=== PATIENT | female | born 1955 | race Caucasian/White ===

== ENCOUNTER → 2016-11-20 | Outpatient (CLI) | payer OTHER | END | disposition home or self-care (01) | LOC: LAB 09:02 | PROVIDERS: ATTEND Obstetrics & Gynecology Gynecology | DX: R53.83 Other fatigue (principal) | CPT/HCPCS: 36415; 86900 ==

== ENCOUNTER 2019-03-04 16:18 | Emergency (ER) | payer OTHER ==
[~2019-03-04] VITALS: Ht 170.2 cm; Wt 70.7 kg
[2019-03-04] MEDS ORDERED: PROP10TA51 PO (17:43)
[2019-03-04] MEDS ORDERED: VALTREX (17:43)
[2019-03-04] MEDS ORDERED: ASPI-515 PO (17:43)
[2019-03-04] MEDS ORDERED: LIPITOR (17:43)
[2019-03-04] MEDS ORDERED: SYNTHROID (17:43)
--- NOTE | 2019-03-04 17:45 | NUR ---
PT CAME IN CO OF "A CHEST SENSATION. AND I HAVENT BEEN FEELING MYSELF FOR THE PAST WEEK". 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 DIXON IS BEDSIDE.
[2019-03-04] MEDS ORDERED: ASPIRIN 81 MG TABLET CHEW ONE (17:52)
[2019-03-04] MEDS ORDERED: ASPIRIN 81 MG TABLET CHEW PO ONE (18:00)
[2019-03-04 18:10] LABS: BASOPHILS # (AUTO) 0.11 x10^3/uL (0-0.1); BASOPHILS % (AUTO) 2 % (0-1); EOSINOPHILS # (AUTO) 0.25 x10^3/uL (0-0.4); EOSINOPHILS % (AUTO) 3 % (1-7); LYMPHOCYTES # (AUTO) 1.83 x10^3/uL (1-3.4); LYMPHOCYTES % (AUTO) 25 % (22-44); MD NO; MEAN CORPUSCULAR HEMOGLOBIN 32.7 pg (27.0-34.8); MEAN CORPUSCULAR HGB CONC 33.7 g/dL (32.4-35.8); MEAN CORPUSCULAR VOLUME 96.8 fL (80-100); MEAN PLATELET VOLUME 7.7 fL (7.4-10.4); MONOCYTES # (AUTO) 0.72 x10^3/uL (0.2-0.8); MONOCYTES % (AUTO) 10 % (2-9); NEUTROPHILS # (AUTO) 4.32 x10^3/uL (1.8-6.8); NEUTROPHILS % (AUTO) 60 % (42-75); PLATELET COUNT 268 x10^3/uL (130-400); RED BLOOD COUNT 4.41 x10^6/uL (3.82-5.3); RED CELL DISTRIBUTION WIDTH 13.6 % (9.6-15.2)
--- NOTE | 2019-03-04 18:24 | NUR ---
TASK RN: WITH REPEAT ASSESSMENT NO ACUTE CHANGE. REMAINS WITH CHEST DISCOMFORT AND HR 45-60 ON BEVERAGE SERVER (B/P WNL) TO RADIOLOGY FOR CXR AT 1820
--- NOTE | 2019-03-04 18:30 | NUR ---
PATIENT REPORTS CHEST DISCOMFORT IMPROVED TO 02/27. HR REMAINS 40-50. HOWEVER, PATIENT REPORT THIS IS HER NORMAL
[2019-03-04 18:36] LABS: ALBUMIN 4.3 g/dL (3.4-5.0); ANION GAP 7 mmol/L (5-15); CALCIUM 9.3 mg/dL (8.5-10.1); CHLORIDE 106 mmol/L (98-107); CREATININE 0.94 mg/dL (0.55-1.02)
[2019-03-04 18:39] LABS: TROPONIN I < 0.015 ng/mL (0.000-0.045)
[2019-03-04 19:18] VITALS: BP 156/86
--- NOTE | 2019-03-04 19:18 | NUR ---
DR. DIXON IS BEDSIDE
== END 2019-03-04 19:33 | disposition home or self-care (01) ==
LOC: ED 19:27
DX: R07.89 Other chest pain (principal); I10 Essential (primary) hypertension; E78.5 Hyperlipidemia, unspecified
CPT/HCPCS: 36415; 71046; 80048; 82040; 83880; 84484; 85025; 93005; 99284

== ENCOUNTER → 2019-04-30 | Outpatient (CLI) | payer OTHER ==
[~2019-04-30] MED LIST: ASPI-515 PO; LIPITOR; PROP10TA51 PO; SYNTHROID; VALTREX
== END | disposition home or self-care (01) ==
LOC: CFH 10:41
PROVIDERS: ATTEND Internal Medicine Cardiovascular Disease
DX: R00.2 Palpitations (principal); R07.9 Chest pain, unspecified
CPT/HCPCS: 78452; 93017; 93306; A9502

== ENCOUNTER 2020-11-02 14:55 | Outpatient (CLI) | payer OTHER ==
[~2020-11-02 14:55] MED LIST changes: -ASPI-515 PO; +ASPI-963 PO
[2020-11-02] MEDS ORDERED: VALA500T4 PO (15:36)
[2020-11-02] MEDS ORDERED: ESTR1PAT23 TD (15:36)
[2020-11-02] MEDS ORDERED: ATOR20TA PO (15:36)
[2020-11-02] MEDS ORDERED: CHOL10003 PO (15:36)
[2020-11-02] MEDS ORDERED: ASPI81TA45 PO (15:36)
[2020-11-02] MEDS ORDERED: HYDR-3241 PO (15:36)
[2020-11-02] MEDS ORDERED: PROG100C16 PO (15:36)
[2020-11-02] MEDS ORDERED: TRAM50TA2 PO (15:36)
[2020-11-02] MEDS ORDERED: NAPR220C2 PO (15:36)
[2020-11-02] MEDS ORDERED: LEVO112T2 PO (15:36)
[2020-11-02] MEDS ORDERED: magnesium PO (15:36)
[2020-11-02 16:00] LABS: HCT (SEDRATE) 44.2 % (34.6-47.8)
[2020-11-02 16:01] LABS: BASOPHILS % (AUTO) 1 % (0-1); EOSINOPHILS % (AUTO) 2 % (1-7); LYMPHOCYTES % (AUTO) 25 % (22-44); MEAN CORPUSCULAR HEMOGLOBIN 32.7 pg (27.0-34.8); MEAN PLATELET VOLUME 7.7 fL (7.4-10.4); MONOCYTES % (AUTO) 9 % (2-9); NEUTROPHILS % (AUTO) 63 % (42-75); PLATELET COUNT 316 x10^3/uL (130-400); RED BLOOD COUNT 4.61 x10^6/uL (3.82-5.3); RED CELL DISTRIBUTION WIDTH 13.7 % (9.6-15.2)
[2020-11-02 16:09] LABS: ALANINE AMINOTRANSFERASE 59 U/L (12-78); ALBUMIN 4.3 g/dL (3.4-5.0); ANION GAP 6 mmol/L (5-15); CHLORIDE 103 mmol/L (98-107); CREATININE 0.82 mg/dL (0.55-1.02)
[2020-11-02 16:12] LABS: ALKALINE PHOSPHATASE 89 U/L (45-117); BILIRUBIN,TOTAL 0.7 mg/dL (0.2-1.0); INTERNATIONAL NORMALIZED RATIO 1.03 (0.93-1.1); TOTAL PROTEIN 8.4 g/dL (6.4-8.2)
[2020-11-02 16:14] LABS: MICROSCOPIC NOT IND
== END 2020-11-02 23:59 | disposition home or self-care (01) ==
LOC: STAR 14:55
PROVIDERS: ATTEND Orthopaedic Surgery Orthopaedic Surgery of the Spine
DX: Z01.812 Encounter for preprocedural laboratory examination (principal); Z20.822 Contact with and (suspected) exposure to COVID-19; Z01.818 Encounter for other preprocedural examination; I49.3 Ventricular premature depolarization
CPT/HCPCS: 71046; 80053; 80074; 81003; 85025; 85610; 85651; 85730; 87635; 87806; 93005; G0475

== ENCOUNTER 2020-11-11 09:37 | Day surgery (SDC) | payer OTHER ==
[~2020-11-11] VITALS: Ht 170.2 cm; Wt 65.2 kg
[~2020-11-11 09:37] MED LIST changes: +ASPI81TA45 PO; +ATOR20TA PO; +BUPIVACAINE/PF 0.5% ONE; +CHOL10003 PO; +EPINEPHRINE 1 MG/ML, 1ML ONE; +ESTR1PAT23 TD; +HYDR-3241 PO; +LEVO112T2 PO; +LIDOCAINE/PF 1%, 30ML ONE; +NAPR220C2 PO; +PROG100C16 PO; +TRAM50TA2 PO; +VALA500T4 PO; +VANCOMYCIN 1,000 MG ONE; +magnesium PO; +morphine SULFATE/PF 0.5 MG/ML, 10ML ONE
[2020-11-11] MEDS ORDERED: FENTANYL PF 250 MCG/5ML ONE (10:13)
[2020-11-11] MEDS ORDERED: MIDAZOLAM 1 MG/ML, 2ML ONE (10:13)
[2020-11-11] MEDS ORDERED: PROP20TA PO (10:29)
[2020-11-11] MEDS ORDERED: CELE200C PO (10:29)
[2020-11-11] MEDS ORDERED: GABA600T7 PO (10:29)
[2020-11-11] MEDS ORDERED: LACTATED RINGERS 1,000 ML IV SCH (10:30)
[2020-11-11] MEDS ORDERED: CHLORHEXIDINE 15 ML UDC PO ONE (10:30)
[2020-11-11 10:39] VITALS: BP 149/94
[2020-11-11] MEDS ORDERED: PROPOFOL 100 ML ONE (11:01)
[2020-11-11] MEDS ORDERED: PROPOFOL 10 MG/ML, 20ML ONE (11:01)
[2020-11-11] MEDS ORDERED: DEXAMETHASONE 4 MG/ML, 1ML ONE ×2 (11:20→12:09)
[2020-11-11] MEDS ORDERED: GENTAMICIN 80 MG/2 ML ONE (11:21)
[2020-11-11] MEDS ORDERED: CEFAZOLIN 1,000 MG ONE (11:27)
[2020-11-11] MEDS ORDERED: METHOCARBAMOL 1,000 MG in DEXTROSE 5% 100 ML IV PRN (12:00)
[2020-11-11] MEDS ORDERED: hydrALAzine 20 MG/ML, 1ML IV PRN (12:00)
[2020-11-11] MEDS ORDERED: HYDROmorphone 1 MG/ML, 1ML INJ IVPush PRN (12:00)
[2020-11-11] MEDS ORDERED: ONDANSETRON 2MG/ML, 2ML IVPush PRN (12:00)
[2020-11-11] MEDS ORDERED: HYDROcodone/APAP 7.5-325MG/15ML UDC PO PRN (12:00)
[2020-11-11] MEDS ORDERED: PROMETHAZINE 25 MG/ML, 1ML IVPush PRN (12:00)
[2020-11-11] MEDS ORDERED: DIAZEPAM 5 MG/ML, 2ML IVPush PRN (12:00)
[2020-11-11] MEDS ORDERED: LABETALOL 5MG/ML, 20ML IV PRN (12:00)
[2020-11-11] MEDS ORDERED: MEPERIDINE/PF 25MG/0.5ML IVPush PRN (12:00)
[2020-11-11] MEDS ORDERED: KETOROLAC 30 MG/1 ML ONE (12:05)
[2020-11-11] MEDS ORDERED: ONDANSETRON 2MG/ML, 2ML ONE ×2 (12:09→13:01)
[2020-11-11] MEDS ORDERED: FENTANYL PF 100 MCG/2ML ONE (13:08)
[2020-11-11] MEDS: FENTANYL PF 100 MCG/2ML IV PRN ×2 (13:09→13:32)
[2020-11-11] MEDS ORDERED: HYDROcodone/APAP 7.5-325MG/15ML UDC ONE (13:33)
== END 2020-11-11 14:45 | disposition home or self-care (01) ==
LOC: OUT 09:37
PROVIDERS: ATTEND Orthopaedic Surgery Orthopaedic Surgery of the Spine
DX: M51.16 Intervertebral disc disorders with radiculopathy, lumbar region (principal); I10 Essential (primary) hypertension; I49.8 Other specified cardiac arrhythmias; Z20.822 Contact with and (suspected) exposure to COVID-19
CPT/HCPCS: 63030; 72100; 87635; 88304; J0171; J0690; J1100; J1580; J1885; J2250; J2405; J2704; J2800; J3010; J7120; J2274; J3370